=== PATIENT | male | born 1970 | race African-American/Black ===

== ENCOUNTER 2021-05-02 03:11 | Emergency (ER) | payer OTHER, SELFPAY ==
[2021-05-02] MEDS ORDERED: Oxymetazoline HCl 0.05% ( 15 ML ) ONE (03:49)
[2021-05-02 04:13] LABS: #Eosinphils 0.1 10x3/uL (0.0-0.5); #Monocytes 0.7 10x3/uL (0.0-1.1); #Neutrophils 4.9 10x3/uL (1.5-8.4); %Basophils 0.3 % (0.0-2.0); %Eosinophils 1.4 % (0.0-6.0); %Lymphocytes 22.2 % (18.0-47.0); %Monocytes 9.6 % (0.0-10.0); %Neutrophils 66.4 % (40.0-75.0); Hemoglobin 13.1 g/dL (13.5-17.5); Mean Corpuscular HGB CONC 32.3 g/dL (32.0-36.0); Mean Corpuscular Hemoglobin 28.2 pg (27.0-33.0); Mean Corpuscular Volume 87.3 fl (81.2-95.1); Platelet Count 117 10x3/uL (150-450); RBC Distribution Width 14.7 % (11.5-14.5); Red Blood Cell (RBC) Count 4.64 10x6/uL (4.32-5.72); White Blood Cell (WBC) Count 7.3 10x3/uL (3.5-10.5)
[2021-05-02 04:22] LABS: ALT (SGPT) 19 U/L (8-55); AST (SGOT) 18 U/L (5-34); Albumin 4.3 g/dL (3.5-5.0); Alkaline Phosphatase 53 U/L (40-110); Anion Gap 12 mmol/L (10-20); BUN (Urea Nitrogen) 10 mg/dL (8.9-20.6); Bilirubin, Total 0.5 mg/dL (0.2-1.2); Calc. Creatinine Clearance 0 mL/min (70-130); Calcium 9.2 mg/dL (7.8-10.44); Carbon Dioxide 20 mmol/L (22-29); Chloride 109 mmol/L (98-107); Globulin 2.8 g/dL (2.4-3.5); Glucose 113 mg/dL (70-105); Potassium 4.2 mmol/L (3.5-5.1); Protein, Total 7.1 g/dL (6.0-8.3); Sodium 137 mmol/L (136-145)
[2021-05-02 06:50] LABS: Platelet Morphology Comment Appears Decreased; RBC Morphology Normal
[2021-05-02 18:25] LABS: SARS-CoV-2 PCR by NAA Not Detected (NotDetected)
== END 2021-05-02 05:41 | disposition home or self-care (01) ==
LOC: CSHERS 03:11
DX: R06.02 Shortness of breath (principal); R09.81 Nasal congestion; Z20.822 Contact with and (suspected) exposure to COVID-19; Z79.899 Other long term (current) drug therapy
CPT/HCPCS: 71045; 80053; 83880; 84484; 85025; 85379; 93005; U0003; U0005

== ENCOUNTER 2022-01-06 14:34 | Outpatient (CLI) | payer BC | END 2022-01-06 14:35 | disposition home or self-care (01) | LOC: CSHRAD 14:34 | PROVIDERS: ATTEND Family Medicine | DX: M25.561 Pain in right knee (principal); M25.562 Pain in left knee; M47.817 Spondylosis without myelopathy or radiculopathy, lumbosacral region | CPT/HCPCS: 72110 ==

== ENCOUNTER 2022-11-23 08:17 | Emergency (ER) | payer BC, OTHER ==
[2022-11-23] MEDS ORDERED: Ketorolac Tromethamine 30 MG/ML VIAL ONE (09:08)
== END 2022-11-23 10:26 | disposition home or self-care (01) ==
LOC: CSHERS 08:17
DX: M54.50 Low back pain, unspecified (principal)
CPT/HCPCS: 72131; 96372; J1885

== ENCOUNTER 2023-11-19 10:53 | Outpatient (CLI) | payer BC | END 2023-11-19 10:54 | disposition home or self-care (01) | LOC: CSHRAD 10:53 | PROVIDERS: ATTEND Family Medicine | DX: M25.461 Effusion, right knee (principal) ==